=== PATIENT | female | born 1960 | race Caucasian/White ===

== ENCOUNTER 2019-11-21 07:26 | Outpatient (CLI) | payer BC, SELFPAY ==
--- NOTE | 2019-11-21 07:36 | MM_ITS ---
WS: [id number] SCREENING DIGITAL MAMMOGRAM WITH CAD HISTORY: SCREENING COMPARISON: 10/01/2018, 09/07/2017 and 07/23/2015 Bilateral CC and MLO views submitted. Computer aided detection analyzed. Breast composition: No suspicious masses, microcalcifications or architectural distortion. MM/[place] [id number] IMPRESSION: BI-RADS: 1-Negative FOLLOW UP: 1 Year Follow-up
== END 2019-11-21 07:27 | disposition home or self-care (01) ==
LOC: RADSHAW 07:29
PROVIDERS: Family Provider Family Medicine; PCP Family Medicine; Visit Provider Family Medicine
DX: Z12.31 Encounter for screening mammogram for malignant neoplasm of breast (principal)
CPT/HCPCS: 77067

== ENCOUNTER 2021-01-18 10:50 | Outpatient (CLI) | payer BC, SELFPAY ==
--- NOTE | 2021-01-18 10:56 | MM_ITS ---
WS: [id number] BILATERAL SCREENING DIGITAL MAMMOGRAM WITH CAD HISTORY: SCREENING COMPARISON: 11/21/2019 and 10/01/2018 Bilateral CC and MLO views submitted. Computer aided detection analyzed. Breast composition: There are scattered areas of fibroglandular density. No suspicious masses, microc alcifications or architectural distortion. MM/[place] [id number] IMPRESSION: BI-RADS: 1-Negative FOLLOW UP: 1 Year Follow-up
== END 2021-01-18 10:51 | disposition home or self-care (01) ==
LOC: RADSHAW 10:54
PROVIDERS: Family Provider Family Medicine; PCP Family Medicine; Visit Provider Family Medicine
DX: Z12.31 Encounter for screening mammogram for malignant neoplasm of breast (principal)
CPT/HCPCS: 77067

== ENCOUNTER 2022-03-05 09:17 | Outpatient (CLI) | payer OTHER, SELFPAY ==
--- NOTE | 2022-03-05 09:31 | MM_ITS ---
WS: [id number] BILATERAL SCREENING DIGITAL BREAST TOMOSYNTHESIS MAMMOGRAM WITH CAD HISTORY: SCREENING COMPARISON: 01/18/2021 and 11/21/2019 and 10/01/2018 Bilateral CC and MLO views with tomosynthesis and synthetic mammography submitted. Computer aided det ection analyzed. Breast composition: There are scattered areas of fibroglandular density. No suspicious masses, microc alcifications or architectural distortion. MM/[place] [id number] IMPRESSION: BI-RADS: 1-Negative FOLLOW UP: 1 Year Follow-up
== END 2022-03-05 09:18 | disposition home or self-care (01) ==
LOC: RAD 09:22
PROVIDERS: PCP Family Medicine; Visit Provider Family Medicine
DX: Z12.31 Encounter for screening mammogram for malignant neoplasm of breast (principal)
CPT/HCPCS: 77063; 77067

== ENCOUNTER 2023-05-21 08:37 | Outpatient (CLI) | payer OTHER, SELFPAY ==
--- NOTE | 2023-05-21 08:46 | MM_ITS ---
WS: [id number] BILATERAL SCREENING DIGITAL TOMOSYNTHESIS MAMMOGRAM WITH CAD HISTORY: SCREENING COMPARISON: 03/05/2022 and 01/18/2021 Bilateral CC and MLO views with tomosynthesis and synthetic mammography submitted. Computer aided det ection analyzed. Breast composition: There are scattered areas of fibroglandular density. No suspicious masses, microc alcifications or architectural distortion. Benign scattered calcifications left breast. IMPRESSION: MM/[place] [id number] BI-RADS: 2-Benign FOLLOW UP: 1 Year Follow-up
== END 2023-05-21 08:38 | disposition home or self-care (01) ==
LOC: RAD 08:41 → MOBLMAM 08:45
PROVIDERS: PCP Family Medicine; Visit Provider Family Medicine
DX: Z12.31 Encounter for screening mammogram for malignant neoplasm of breast (principal)
CPT/HCPCS: 77063; 77067

== ENCOUNTER 2023-06-05 14:51 | Outpatient (CLI) | payer OTHER, SELFPAY ==
--- NOTE | 2023-06-05 15:26 | XR_ITS ---
WS: [email or web address] SCREENING DEXA SCAN [employer] CLINICAL INFORMATION: POSTMENOPAUSAL COMPARISON: None. FINDINGS: The L1-L4 bone mineral density measures 0.967 g/cm2. This corresponds to a T score score of -1.8 and Z score of -1.2. Left femoral neck bone mineral density measures 0.806 g/cm2. This corresponds to a T score of -1.6 an d Z score of -1.1. Right femoral neck bone mineral density measures 0.769 g/cm2. This corresponds to a T score -1.9of an d Z score of -1.4. Mean femoral neck bone mineral density measures 0.787 g/cm2. This corresponds to a T score of -1.7 an d Z score of -1.2. IMPRESSION: Osteopenia lumbar spine. Osteopenia femoral necks. Patient's FRAX calculated 10 year probability for major osteoporotic fracture is 11.6% and osteoporot ic hip fracture is 2.1%.
== END 2023-06-05 14:52 | disposition home or self-care (01) ==
PROVIDERS: PCP Family Medicine; Visit Provider Family Medicine
DX: N95.9 Unspecified menopausal and perimenopausal disorder (principal); Z78.0 Asymptomatic menopausal state
CPT/HCPCS: 77080

== ENCOUNTER 2024-06-01 09:41 | Outpatient (CLI) | payer OTHER, SELFPAY ==
--- NOTE | 2024-06-01 09:48 | MM_ITS ---
WS: [id number] Bilateral screening 3D tomosynthesis digital mammogram, 06/01/2024 Clinical Data: SCREENING Comparison: 05/21/2023, 03/05/2022, 01/18/2021, 11/21/2019, 10/01/2018, 09/07/2017, 07/31/2016, 07/23/2015 , 07/19/2014, 07/06/2014, 06/14/2013, 05/28/2012, 04/17/2011, 03/15/2010, 03/01/2009, 02/16/2008. Findings: The breast parenchymal pattern shows fibroglandular tissue. No spiculated masses or clustered calcifi cations are seen. There are no secondary signs of carcinoma. There are lymph nodes in both axilla. MM/[place] [id number] Impression: 1. Negative bilateral mammogram unchanged. 2. Recommend annual screening mammograms. BIRADS: 1-Negative FOLLOW UP: 1 Year Follow-up The CAD tool drawing checker was used.
== END 2024-06-01 09:42 | disposition home or self-care (01) ==
LOC: RAD 09:42
PROVIDERS: PCP Family Medicine; Visit Provider Family Medicine
DX: Z12.31 Encounter for screening mammogram for malignant neoplasm of breast (principal)
CPT/HCPCS: 77063; 77067

== ENCOUNTER 2024-12-02 11:59 | Outpatient (CLI) | payer OTHER, SELFPAY ==
--- NOTE | 2024-12-02 12:14 | MR_ITS ---
WS: [email or web address] MRI RIGHT KNEE NONCONTRAST TECHNIQUE: Axial PD, coronal PD fat sat, coronal PD, sagittal PD, and sagittal PD fat-sat images obtained. CLINICAL INFORMATION: RIGHT KNEE PAIN COMPARISON: None. FINDINGS: Distal quadriceps and patella tendons are intact. Hypertrophic patella. Normal ACL and PCL. 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 Hypertrophic changes along the joint line. Moderate chondromalacia patella. Medial and lateral patellar retinaculum appear intact. Normal popliteal fossa. Small lobulated popliteal cyst measuring 0.5 x 2.8 cm. Tiny amount of edema in the medial tibial plateau with slight subchondral cystic change. Subchondral edema in the medial femoral condyle. Grade IV chondromalacia medial joint compartment. Normal lateral collateral ligament. Medial collateral ligament appears intact. Normal popliteus. Chronic intrasubstance signal abnormality anterior horn lateral meniscus. Chronic desiccation with peripheral extrusion of the medial meniscus with advanced loss of the medial joint space. MR/MR knee RT wo con* [id number] IMPRESSION: 1. Advanced tricompartment arthritis. 2. ACL and PCL appear intact. 3. Grade IV chondromalacia in the medial joint compartment. Small amount of ritter bchondral edema in the medial femoral condyle and tibial plateau. 4. Chronic desiccation and peripheral extrusion of the medial meniscus. 5. Grade III chondromalacia patella. 6. Small elongated popliteal cyst measuring 0.5 x 2.8 cm. 7. No other acute findings. Outbridge grading: grade IV: full-thickness cartilage loss with underlying bone reactive changes
--- NOTE | 2024-12-02 12:14 | MR_ITS ---
WS: [email or web address] EXAMINATION: MR hip RT wo con* [id number] ORDER DATE: 12/02/2024 12:37 PM COMPARISON: None. HISTORY: PAIN IN RIGHT HIP CONTRAST: None. TECHNIQUE: Coronal STIR of the Pelvis. Coronal proton density, coronal T1, axial T2 fat sat, axial T1, sagittal T2 fat sat, and sagittal T1 performed of the hip. FINDINGS: Moderate degenerative arthritis RIGHT hip. No acute fractures. No evidence of avascular necrosis. No edema in the acetabulum or femoral head. Moderate degenerative narrowing of the LEFT hip. Normal pubic rami. Normal bone marrow signal in the bony pelvis and sacrum. Sigmoid diverticulosis. No evidence of acute diverticulitis. MR/MR hip RT wo con* [id number] IMPRESSION: 1. Moderate degenerative arthritis RIGHT hip. No acute fractures. 2. No evidence of avascular necrosis. No edema in the RIGHT hip. 3. Normal bone marrow signal in the bony pelvis and sacrum. No sacral insuffic iency fractures. 4. Sigmoid diverticulosis.
== END 2024-12-02 12:00 | disposition home or self-care (01) ==
LOC: RAD 12:00
PROVIDERS: PCP Family Medicine; Visit Provider Family Medicine
DX: M25.561 Pain in right knee (principal); M25.551 Pain in right hip; M17.11 Unilateral primary osteoarthritis, right knee; M94.261 Chondromalacia, right knee; R93.6 Abnormal findings on diagnostic imaging of limbs; M71.21 Synovial cyst of popliteal space [Baker], right knee; K57.30 Diverticulosis of large intestine without perforation or abscess without bleeding; M16.0 Bilateral primary osteoarthritis of hip
CPT/HCPCS: 73721

== ENCOUNTER 2025-06-14 13:49 | Outpatient (CLI) | payer OTHER, SELFPAY ==
--- NOTE | 2025-06-14 13:54 | MM_ITS ---
WS: [email or web address] BILATERAL 3D TOMOSYNTHESIS DIGITAL SCREENING MAMMOGRAPHY WITH CAD CLINICAL INFORMATION: SCREENING HISTORY: Screening mammogram. No current complaints. COMPARISON: 2023 TECHNIQUE: Bilateral CC and MLO views. FINDINGS: Scattered fibroglandular densities bilaterally. No suspicious focal mass, asymmetry, calcifications, or architectural distortion. No evidence of malignancy. Few incidental punctate calcifications LEFT breast. MM/MM scr BI tomosynthesis [id number] IMPRESSION: DENSITY: There are scattered areas of fibroglandular density. BI-RADS: 2 - Benign. FOLLOW UP: 1 Year Follow-up Recommend return to annual screening mammography.
== END 2025-06-14 13:50 | disposition home or self-care (01) ==
LOC: RAD 13:52
PROVIDERS: PCP Family Medicine; Visit Provider Family Medicine
DX: Z12.31 Encounter for screening mammogram for malignant neoplasm of breast (principal); R92.323 Mammographic fibroglandular density, bilateral breasts; R92.1 Mammographic calcification found on diagnostic imaging of breast
CPT/HCPCS: 77063; 77067

== ENCOUNTER 2025-09-19 13:53 | Outpatient (CLI) | payer OTHER, SELFPAY ==
--- NOTE | 2025-09-19 13:58 | XR_ITS ---
WS: [email or web address] DEXA (DUAL ENERGY X-RAY ABSORPTIOMETRY) Bone mineral density was performed using a Trep[employer] machine. HISTORY: OSTEOPOROSIS SCREENING COMPARISON: 06/05/2023 Lumbar spine BMD (L1-L4): 0.942 g/cm2 T score: -2.0 Z score: -1.0 Total hip BMD: Left: 0.763 g/cm2. T score: -1.9 Z score: -1.2 Right: 0.740 g/cm2. T score: -2.1 Z score: -1.4 10 year probability of a major osteoporotic fracture is 12.6%. Compared to the prior study from 06/05/2023. Lumbar spine bone mineral density has decreased by 2.6%. Bilateral hips bone mineral density has decreased by 4.6%. XR/XR DEXA axial skeleton* [id number] IMPRESSION: OSTEOPENIA based upon the WHO classification for females. Significant decrease in bone mineral density within the lumbar spine and hips s alex the prior study.
== END 2025-09-19 13:54 | disposition home or self-care (01) ==
LOC: RAD 13:54
PROVIDERS: PCP Family Medicine; Visit Provider Family Medicine
DX: Z13.820 Encounter for screening for osteoporosis (principal); M85.88 Other specified disorders of bone density and structure, other site
CPT/HCPCS: 77080